=== PATIENT | female | born 1960 | race Hispanic/Latino ===

== ENCOUNTER 2016-11-24 10:20 | Outpatient (CLI) | payer BC ==
--- NOTE | 2016-11-24 11:12 | Mammography Report ---
BILATERAL DIGITAL SCREENING MAMMOGRAM with CAD: 11/24/16 10:20:00 CLINICAL: Routine screening. COMPARISON: 11/23/15 FINDINGS: The examination was technically difficult because the patient could not stand very well for the exam. Positioning is therefore somewhat less than optimal. There are bilateral scattered areas of fibroglandular density.No mass, architectural distortion or suspicious calcifications. IMPRESSION: No mammographic evidence of malignancy. BI-RADS CATEGORY: 1 -- Negative RECOMMENDATION: Routine mammographic screening in one year. COMMENT: Patient follow-up letters are generated by our [employer] application.
== END 2016-11-24 10:21 | disposition home or self-care (01) ==
LOC: SPVWC 10:20
PROVIDERS: ATTEND Internal Medicine
DX: Z12.31 Encounter for screening mammogram for malignant neoplasm of breast (principal)
CPT/HCPCS: 77067; G0202

== ENCOUNTER 2016-12-28 07:21 | Day surgery (SDC) | payer BC ==
[~2016-12-28 07:21] MED LIST: NACL 0.9% 1000 ML 1,000 ML IV SCH; VANCOMYCIN/NS 1 GM/250 ML 1 GM/250 ML BAG IV NR
[2016-12-28 08:23] LABS: Basophils % (Auto) 0.7 % (0.0-1.8); Eosinophils % (Auto) 0.5 % (0.0-4.3); Hematocrit 40.1 % (30.3-42.9); Hemoglobin 13.2 gm/dl (10.1-14.3); Mean Corpuscular HGB Conc 33 % (30-34); Mean Corpuscular Hemoglobin 29 pg (28-32); Mean Corpuscular Volume 89 fl (79-97); Platelet Count 119 K/mm3 (140-440); Red Cell Distribution Width 15.4 % (13.2-15.2); White Blood Count 12.2 K/mm3 (4.5-11.0)
[2016-12-28 08:32] LABS: INR 1.03 (0.87-1.13)
[2016-12-28 08:33] LABS: Partial Thromboplastin Time 31.7 Sec. (24.2-36.6)
[2016-12-28 08:38] LABS: BUN/Creatinine Ratio 26; Blood Urea Nitrogen 18 mg/dL (7-17); Calcium 9.3 mg/dL (8.4-10.2); Carbon Dioxide 27 mmol/L (22-30); Chloride 102.4 mmol/L (98-107); Glucose 168 mg/dL (65-100); Sodium 141 mmol/L (137-145)
[2016-12-28] MEDS ORDERED: SUBLIMAZE ONE ×2 (08:41→11:49)
[2016-12-28 08:56] LABS: Anion Gap 17 mmol/L; Potassium 5.7 mmol/L (3.6-5.0)
[2016-12-28] MEDS ORDERED: SUBLIMAZE IV ONE (09:00)
[2016-12-28] MEDS ORDERED: HEPARIN/NS 5000 UNIT/500ML(CATH LAB) 1,000 ML IR ONE (10:03)
[2016-12-28] MEDS ORDERED: XYLOCAINE 1%/ EPI 1:100,000 INFILTRATI ONE (10:04)
[2016-12-28] MEDS: VERSED ONE ×2 (10:40→11:28)
[2016-12-28] MEDS: SUBLIMAZE ONE ×2 (10:48→11:30)
[2016-12-28] MEDS: HEPARIN 10,000 UNITS/10 ML ONE ×3 (11:25→12:08)
[2016-12-28] MEDS ORDERED: CALAN ONE (11:26)
[2016-12-28] MEDS ORDERED: NITROGLYCERIN SYRINGE 3 ML ONE (11:26)
[2016-12-28] MEDS ORDERED: VERSED ONE (11:49)
[2016-12-28] MEDS ORDERED: HEPARIN/NS 5000 UNIT/500ML(CATH LAB) 500 ML IR ONE (12:03)
[2016-12-28] MEDS ORDERED: NORCO 5/325 PO PRN (13:02)
--- NOTE | 2016-12-28 14:55 | Operative Report ---
Operative Report Operative Report: Date of procedure:12/28/2016 Pre-operative diagnosis: [Acute ischemia, rest pain, right leg, morbid obesity, diabetes, endometrial carcinoma] Post-operative diagnosis: [Same] Procedure name(s): [#1 percutaneous placement of stent right femoral artery with angioplasty #2 duplex guided cannulation of anterior tarsal artery right foot #3 additional selective diagnostic angiogram of the tibial arteries, previous films not available] Surgeon: Ortega Franklin MD Oil Heaterman: [None] Anesthesia: [Conscious sedation] EBL: [Minimal] Specimen(s): [None] Complications: [None] Findings: [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 But obviously vastly improved after successful revascularization but still without discernible Doppler signals in the foot] Surgical history/indications: Patient with recently diagnosed endometrial carcinoma pending hysterectomy who presented with an acutely ischemic right forefoot present only for a few days before initial evaluation. Diagnostic angiogram done in our office based flap via the left wrist showed a 10-12 cm segment of the femoral artery to be occluded with possible thrombus proximal to a high-grade stenosis in the mid to distal thigh. Tibial runoff never identified due to the lack of perfusion below the knee. Inability to access the patient's common femoral artery due to her size despite duplex guidance to the not scheduling her for hospital in an attempt to access longer instruments, better ultrasound, or possible pedal access. Post procedure left thumb and first digit had developed modest cyanosis despite duplex confirmation of patent left radial artery and an intact ulnar and robust palmar arch. This is somewhat suspicious for a hypercoagulable state. Procedure: [Patient in the supine position both groins and the right foot were prepped and draped using standard sterile technique. I initially imaged the left common femoral artery and found it to be more than 7 cm deep. I elected to attempt a pedal access rather than the femoral access for the procedure. The attention was then turned to the right foot where we used a duplex imaging to identify a dorsalis pedis and the posterior tibial artery. The skin overlying each of these vessels was anesthetized and using real-time duplex imaging I attempted to access both of these vessels. While I did access the dorsalis pedis I could not get the wire to thread proximally. I then found a branch (probably the anterior tarsal branch) of the peroneal artery successfully accessed this using a micropuncture technique and real-time duplex imaging of able to thread a microwire and sheath retrograde into the mid calf. Contrast suggested I was in the peroneal artery. I then advanced a 0.018 V 18 wire retrograde to the right common femoral artery fast traversing the occluded segment. I upsized the sheath and the ankle to a 5 [place] sheath and we heparinized the patient. I passed a 4 x 200 balloon and predilated the stenotic lesion after contrast was injected inferiorly delineated that we had successfully crossed the occluded segment. I then deployed a 6mm by 200 self- expanding stent posted that with a 4 balloon. Repeat contrast injections showed the artery was open but there was significant residual stenosis just below the distal end of the stent. I then deployed a second 6 x 60 stent and then posted both with a 5 x 200 balloon. Repeat contrast injections showed complete resolution of the thrombosed slashed occluded segment and no evidence of distal embolization. A quick cross catheter had been used to obtain the pre- and post angiograms and then I withdrew the catheter into the distal popliteal where contrast was injected and for the first time we could delineate the tibial vessels. This angiogram did not show any substantial flow below the knee however now she had brisk flow down the popliteal artery but the posterior tibial artery was absent. The anterior tibial artery was patent into the distal one third of the calf where it became difficult to see. Peroneal artery was patent all the way to the level of the sheath. The posterior tibial artery reconstituted at the ankle via tarsal collateral from the distal peroneal. That posterior tibial artery did become the medial plantar artery with a Desert foot with ( no blood vessels seen) configuration of the forefoot. Blood flow through the sheath however was dramatically improved from previous intervention the patient noted immediate improvement in her foot pain. At this point I feel that we had accomplished all of our goals for today and the guidewires and catheters and sheaths were removed at the level of ankle with counter pressure held for hemostasis. Patient was then returned to the recovery area in stable/ improved condition. Because of the potential for underlying hypercoagulability I have elected to place her on Eliquis and aspirin rather than Plavix.]
[2016-12-28] MEDS ORDERED: ELIQUIS PO SCH (15:00)
--- NOTE | 2016-12-28 15:07 | Short Stay Summary ---
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 attempt a revascularization probably a pedal access - History H&P: obtained from office - Allergies and Medications Current Medications: Allergies amoxicillin Allergy (Verified 12/28/16 07:22) Unknown NAUSEA Home Medications Medication Instructions Recorded Confirmed Last Taken Type metFORMIN [Glucophage] 1,000 mg PO BID #120 tablet 02/16/14 12/28/16 12/26/16 Rx 1000mg Aspirin EC [Aspirin Enteric Coated 81 mg PO DAILY 12/28/16 12/28/16 12/28/16 06: 00 History TAB] Empagliflozin [Jardiance] 25 mg PO QAM 12/28/16 12/28/16 12/26/16 History 25mg Gabapentin [Neurontin] 100 mg PO TID 12/28/16 12/28/16 12/26/16 History 100mg Insulin Aspart [NovoLOG Flexpen] 38 units SQ TID 12/28/16 12/28/16 12/27/16 History 19units Insulin Degludec [Tresiba 100 units SQ HS 12/28/16 12/28/16 12/27/16 History Flextouch U-200] 100units Irbesartan [Avapro] 150 mg PO HS 12/28/16 12/28/16 12/28/16 06:00 History 150mg Liraglutide [Victoza 2-Austen] 1.8 mg SQ HS 12/28/16 12/28/16 12/27/16 History 1.8mg Triamterene/Hydrochlorothiazid 0.5 tab PO DAILY 12/28/16 12/28/16 12/26/16 History [Triamterene-Hctz 37.5-25 mg] 0.5tab Vit D3-Vit K/Berberine/Hops 1 tab PO DAILY 12/28/16 12/28/16 12/26/16 History [Ostera Tablet] 1 tab amLODIPine [Norvasc] 5 mg PO DAILY 12/28/16 12/28/16 12/28/16 06:00 History Active Medications Acetaminophen/Hydrocodone Bitart ([place] 5/325) 1 each PO Q4H PRN PRN Reason: Pain, Moderate (4-6) Last Admin: 12/28/16 14:12 Dose: 1 each Apixaban (Eliquis) 10 mg PO Q12HR NALDO PRN Reason: Protocol Sodium Chloride (Nacl 0.9% 1000 Ml) 1,000 mls @ 42 mls/hr IV DIRECT NALDO Last Admin: 12/28/16 08:35 Dose: 42 mls/hr Vancomycin HCl (Vancomycin/Ns 1 Gm/250 Ml) 1 gm in 250 mls @ 166.667 mls/hr IV PREOP NR PRN Reason: Protocol Stop: 12/28/16 23:01 Last Admin: 12/28/16 10:01 Dose: 166.667 mls/hr - Brief post op/procedure progress note Date of procedure: 12/28/16 Procedure: Date of procedure:12/28/2016 Pre-operative diagnosis: [Acute ischemia, rest pain, right leg, morbid obesity, diabetes, endometrial carcinoma] Post-operative diagnosis: [Same] Procedure name(s): [#1 percutaneous placement of stent right femoral artery with angioplasty #2 duplex guided cannulation of anterior tarsal artery right foot #3 additional selective diagnostic angiogram of the tibial arteries, previous films not available] Surgeon: Ortega Franklin MD District Adviser: [None] Anesthesia: [Conscious sedation] EBL: [Minimal] Specimen(s): [None] Complications: [None] Findings: [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 But obviously vastly improved after successful revascularization but still without discernible Doppler signals in the foot] Surgical history/indications: Patient with recently diagnosed endometrial carcinoma pending hysterectomy who presented with an acutely ischemic right forefoot present only for a few days before initial evaluation. Diagnostic angiogram done in our office based flap via the left wrist showed a 10-12 cm segment of the femoral artery to be occluded with possible thrombus proximal to a high-grade stenosis in the mid to distal thigh. Tibial runoff never identified due to the lack of perfusion below the knee. Inability to access the patient's common femoral artery due to her size despite duplex guidance to the not scheduling her for hospital in an attempt to access longer instruments, better ultrasound, or possible pedal access. Post procedure left thumb and first digit had developed modest cyanosis despite duplex confirmation of patent left radial artery and an intact ulnar and robust palmar arch. This is somewhat suspicious for a hypercoagulable state. Procedure: [Patient in the supine position both groins and the right foot were prepped and draped using standard sterile technique. I initially imaged the left common femoral artery and found it to be more than 7 cm deep. I elected to attempt a pedal access rather than the femoral access for the procedure. The attention was then turned to the right foot where we used a duplex imaging to identify a dorsalis pedis and the posterior tibial artery. The skin overlying each of these vessels was anesthetized and using real-time duplex imaging I attempted to access both of these vessels. While I did access the dorsalis pedis I could not get the wire to thread proximally. I then found a branch (probably the anterior tarsal branch) of the peroneal artery successfully accessed this using a micropuncture technique and real-time duplex imaging of able to thread a microwire and sheath retrograde into the mid calf. Contrast suggested I was in the peroneal artery. I then advanced a 0.018 V 18 wire retrograde to the right common femoral artery fast traversing the occluded segment. I upsized the sheath and the ankle to a 5 [place]ian sheath and we heparinized the patient. I passed a 4 x 200 balloon and predilated the stenotic lesion after contrast was injected inferiorly delineated that we had successfully crossed the occluded segment. I then deployed a 6mm by 200 self- expanding stent posted that with a 4 balloon. Repeat contrast injections showed the artery was open but there was significant residual stenosis just below the distal end of the stent. I then deployed a second 6 x 60 stent and then posted both with a 5 x 200 balloon. Repeat contrast injections showed complete resolution of the thrombosed slashed occluded segment and no evidence of distal embolization. A quick cross catheter had been used to obtain the pre- and post angiograms and then I withdrew the catheter into the distal popliteal where contrast was injected and for the first time we could delineate the tibial vessels. This angiogram did not show any substantial flow below the knee however now she had brisk flow down the popliteal artery but the posterior tibial artery was absent. The anterior tibial artery was patent into the distal one third of the calf where it became difficult to see. Peroneal artery was patent all the way to the level of the sheath. The posterior tibial artery reconstituted at the ankle via tarsal collateral from the distal peroneal. That posterior tibial artery did become the medial plantar artery with a Desert foot with ( no blood vessels seen) configuration of the forefoot. Blood flow through the sheath however was dramatically improved from previous intervention the patient noted immediate improvement in her foot pain. At this point I feel that we had accomplished all of our goals for today and the guidewires and catheters and sheaths were removed at the level of ankle with counter pressure held for hemostasis. Patient was then returned to the recovery area in stable/ improved condition. Because of the potential for underlying hypercoagulability I have elected to place her on Eliquis and aspirin rather than Plavix. - Hospital course Hospital course: Foot greatly improved with diminished tenderness and improved color of the forefoot. No Doppler signals found in the foot however peroneal and anterior tibial pulses are easily auscultated using Doppler in the mid calf. - Disposition Condition at discharge: Stable Disposition: DC-01 TO HOME OR SELFCARE Short Stay Discharge Plan Activity: advance as tolerated Weight Bearing Status: Weight Bear as Tolerated Diet: low cholesterol Wound: keep clean and dry Special Instructions: no heavy lifting Follow up with: MACIE RICHARDSON MD [Primary Care Provider] - 7 Days ORTEGA FRANKLIN MD [Staff Physician] - 7 Days Prescriptions: Apixaban [Eliquis] 10 mg PO Q12HR #7 tablet
[2016-12-28] MEDS ORDERED: ELIQUIS ONE (15:08)
[2016-12-28 15:51] VITALS: BP 121/69
--- NOTE | 2016-12-28 17:33 | Vascular Lab Report ---
LEFT UPPER EXTREMITY ARTERIAL DUPLEX: REASON FOR EXAM: Status post procedure. COMMENTS ON THE LEFT: Triphasic waveforms are seen proximally. Monophasic waveforms are seen distally. Significant decrease in flow noted in the distal radial artery. No significant plaque is identified. Findings are consistent with possible post procedure spasm versus subtotal occlusion.. IMPRESSION: LEFT:Patent left radial artery but significantly decreased flow. Clinical correlation recommended.
--- NOTE | 2016-12-28 17:42 | Vascular Lab Report ---
MISCELLANEOUS VESSEL IDENTIFICATION: COMMENTS ON THE SCAN: The right anterior tibial artery was identified and under real-time ultrasound guidance was cannulated. IMPRESSION: Successful ultrasound guided arterial cannulation.
== END 2016-12-28 16:22 | disposition home or self-care (01) ==
LOC: CATHLABREC 07:21
PROVIDERS: ATTEND Surgery Vascular Surgery
DX: I70.221 Atherosclerosis of native arteries of extremities with rest pain, right leg (principal); I99.8 Other disorder of circulatory system; E66.01 Morbid (severe) obesity due to excess calories; E11.9 Type 2 diabetes mellitus without complications; C54.1 Malignant neoplasm of endometrium; Z82.49 Family history of ischemic heart disease and other diseases of the circulatory system; Z88.1 Allergy status to other antibiotic agents
CPT/HCPCS: 36415; 37226; 76937; 80048; 82962; 84132; 85025; 85610; 85730; 93926; 93931; 96374; C1725; C1769; C1894; J1644; J2250; J3010; J3370; J7030; Q9967

== ENCOUNTER 2019-02-13 12:56 | Outpatient (CLI) | payer OTHER ==
--- NOTE | 2019-02-14 13:33 | Mammography Report ---
DIGITAL SCREENING MAMMOGRAM WITH CAD, 02/13/2019 INDICATION: Routine screening mammography. TECHNIQUE: Digital bilateral 2D mammography was obtained in the craniocaudal and mediolateral obliq ue projections. This examination was interpreted with the benefit of Computer-Aided Detection analysi s. COMPARISON: FINDINGS: Breast Density: There are scattered areas of fibroglandular density. There is no evidence of dominant mass, suspicious calcifications or architectural distortion in eithe r breast. IMPRESSION: No mammographic evidence of malignancy. Follow up recommendation: Routine yearly BI-RADS Category 1: Negative. A "normal" or negative report should not discourage follow up or biopsy of a clinically significant f inding. A written summary of these findings will be mailed to the patient. The patient will be entered into a mammography reporting system which will generate a reminder letter for the patient's next appointmen t at the appropriate interval. The [employer] recommends yearly mammograms starting at age 40 and continuing as l sapna as a woman is in good health. Breast MRI is recommended for women with an approximate 20-25% or greater lifetime risk of breast cancer, including women with a strong family history of breast or ova jose cancer or who have been treated for Hodgkin's disease. Signer Name: Martin Cox MD Signed: 02/14/2019 1:29 PM Workstation Name: [id number]
== END 2019-02-13 12:57 | disposition home or self-care (01) ==
LOC: SPVWC 12:56
PROVIDERS: ATTEND Internal Medicine
DX: Z12.31 Encounter for screening mammogram for malignant neoplasm of breast (principal)
CPT/HCPCS: 77067